=== PATIENT | female | born 1995 | race Caucasian/White ===

== ENCOUNTER 2018-01-21 09:53 | Inpatient (IN) | payer OTHER ==
[2018-01-21] MEDS ORDERED: CARBOPROST 250 MCG INJ IM (10:00)
[2018-01-21] MEDS ORDERED: OXYTOCIN 30 UNITS/LR 500 ML IV (10:00)
[2018-01-21] MEDS ORDERED: METHYLERGONOVINE 0.2 MG INJ IM (10:00)
[2018-01-21] MEDS ORDERED: LIDOCAINE 1% (MPF) 30 ML INJ INJ (10:00)
[2018-01-21] MEDS ORDERED: IBUPROFEN 600 MG TAB PO (10:00)
[2018-01-21] MEDS ORDERED: MISOPROSTOL 200 MCG TAB PR (10:00)
[2018-01-21] MEDS ORDERED: BUTORPHANOL 2 MG INJ IV (10:00)
[2018-01-21 10:48] LABS: WHITE BLOOD COUNT 12.9 10^3/ul (4.8-10.8)
[2018-01-21 10:48] LABS: HEMATOCRIT 37.1 % (37.0-47.0); HEMOGLOBIN 12.8 g/dl (12.0-16.0); MEAN CORPUSCULAR HGB CONC 34.5 g/dl (32.0-37.0); MEAN CORPUSCULAR VOLUME 89.8 fl (82.0-101.0); MEAN PLATELET VOLUME 9.2 fl (7.4-10.4); PLATELET COUNT 323 10^3/UL (140-415); RED BLOOD COUNT 4.13 10^6/ul (4.20-5.40)
[2018-01-21 10:49] LABS: ADD MAN DIFF? YES; POSITIVE DIFF @See below
[2018-01-21 12:09] LABS: ANISOCYTOSIS 1+ (0-0); BAND NEUTROPHILS % (M) 16 % (0-4); LYMPHOCYTES #M 1.1 10^3/ul (0.8-2.9); LYMPHOCYTES % (M) 9 % (15-51); MICROCYTOSIS 1+ (0-0); MONOCYTE #M 0.7 10^3/ul (0.3-0.9); MONOCYTES % (M) 6 % (0-11); MYELOCYTES #M 0.5 10^3/ul (0.0-0.0); MYELOCYTES % (M) 4 % (0-0); PLATELET ESTIMATE NORMAL; POIKILOCYTOSIS 2+ (0-0); REACTIVE LYMPHOCYTES #M 0.7 10^3/ul (0.0-0.0); REACTIVE LYMPHOCYTES% (M) 6 % (0-0); SEG NEUT #M 7.9 10^3/ul (1.6-7.5); SEGMENTED NEUTROPHILS (M) % 59 % (39-77); SMUDGE%M 9 % (0-0); TEAR DROP CELLS 1+ (0-0)
[2018-01-21 12:09] LABS: HEPATITIS B SURFACE ANTIGEN NEGATIVE (NEGATIVE)
[2018-01-21] MEDS: LACTATED RINGER'S 1,000 ML IV ×2 (13:57→16:27)
[2018-01-21] MEDS: OXYTOCIN 30 UNITS/LR 500 ML IV (14:42)
[2018-01-21 15:04] LABS: INR 0.87; PROTIME 11.9 Sec (11.9-14.9); PT RATIO 0.9
[2018-01-21 15:05] LABS: PARTIAL THROMBOPLASTIN TIME 26.6 Sec (23.0-35.0)
[2018-01-21 16:27] LABS: RAPID PLASMA REAGIN NONREACTIVE (NR)
[2018-01-22] MEDS: LACTATED RINGER'S 1,000 ML IV ×2 (00:46→17:23)
[2018-01-22] MEDS: MISOPROSTOL 50 MCG CAPSULE PO ×4 (11:01→23:33)
[2018-01-23] MEDS: LACTATED RINGER'S 1,000 ML IV ×5 (00:19→18:57)
[2018-01-23] MEDS: MISOPROSTOL 50 MCG CAPSULE PO ×2 (03:47→07:47)
[2018-01-23] MEDS: OXYTOCIN 30 UNITS/LR 500 ML IV (14:56)
[2018-01-23] MEDS ORDERED: FENTAnyl 2MCG/ML-ROPIV 0.2% 100 ML BAG EPI (18:30)
[2018-01-23] MEDS ORDERED: NALOXONE (0.4 MG/ML) INJ IV (18:30)
[2018-01-23] MEDS ORDERED: ONDANSETRON 4 MG INJ IV (18:30)
[2018-01-23] MEDS ORDERED: DIPHENHYDRAMINE 50 MG INJ IV (18:30)
[2018-01-24] MEDS: OXYTOCIN 30 UNITS/LR 500 ML IV ×2 (01:05→02:37)
[2018-01-24] MEDS: ACETAMINOPHEN 1000MG/100ML IV 100 ML IVPB (02:22)
[2018-01-24] MEDS: LACTATED RINGER'S 1,000 ML IV* ×2 (04:26→07:59)
[2018-01-24] MEDS ORDERED: OXYTOCIN 30 UNITS/LR 500 ML IV (04:30)
[2018-01-24] MEDS ORDERED: HYDROCODONE/APAP (5/325) TAB PO (04:30)
[2018-01-24] MEDS ORDERED: DIBUCAINE 1% 30 GM OINT TOP (04:30)
[2018-01-24] MEDS ORDERED: METHYLERGONOVINE 0.2 MG INJ IM (04:30)
[2018-01-24] MEDS ORDERED: MISOPROSTOL 200 MCG TAB PR (04:30)
[2018-01-24] MEDS ORDERED: ZOLPIDEM 5 MG TAB PO (04:30)
[2018-01-24] MEDS ORDERED: CARBOPROST 250 MCG INJ IM (04:30)
[2018-01-24] MEDS: HYDROCODONE/APAP (5/325) TAB PO (04:37)
[2018-01-24] MEDS: LANOLIN 7 GM TUBE TOP (04:38)
[2018-01-24] MEDS: BENZOCAINE 20% 56 ML SPRAY TOP (04:38)
[2018-01-24] MEDS: WITCH HAZEL/GLYCERIN PAD PR (04:38)
[2018-01-24] MEDS: MINERAL OIL LIGHT 10 ML VIAL TOP (04:57)
[2018-01-24] MEDS: CEPHALEXIN 500 MG CAP PO ×3 (05:56→18:05)
[2018-01-24] MEDS: IBUPROFEN 600 MG TAB PO ×3 (05:56→18:05)
[2018-01-24] MEDS: LEVOTHYROXINE 175 MCG TAB PO (07:40)
[2018-01-24] MEDS: MAGNESIUM HYDROXIDE 30ML CUP PO ×2 (10:09→21:35)
[2018-01-24] MEDS: SENNA/DOCUSATE NA (8.6MG/50MG) TAB PO ×2 (10:09→21:35)
[2018-01-24 15:17] LABS: ADD MAN DIFF? NO
[2018-01-24 15:19] LABS: WHITE BLOOD COUNT 14.5 10^3/ul (4.8-10.8)
[2018-01-24 15:19] LABS: BASOPHIL # 0.1 10^3/ul (0.0-0.1); BASOPHILS % 0.3 % (0.0-2.0); EOSINOPHILS # 0.1 10^3/ul (0.0-0.5); EOSINOPHILS % 0.6 % (0.0-7.0); HEMATOCRIT 34.1 % (37.0-47.0); HEMOGLOBIN 11.6 g/dl (12.0-16.0); LYMPHOCYTES # 2.5 10^3/ul (0.8-2.9); LYMPHOCYTES % 17.1 % (15.0-51.0); MEAN CORPUSCULAR HEMOGLOBIN 30.6 pg (29.0-33.0); MEAN PLATELET VOLUME 9.3 fl (7.4-10.4); MONOCYTE # 0.7 10^3/ul (0.3-0.9); MONOCYTES % 4.8 % (0.0-11.0); NEUTROPHIL # 11.1 10^3/ul (1.6-7.5); NEUTROPHILS % 76.4 % (39.0-77.0); PLATELET COUNT 327 10^3/UL (140-415); RED BLOOD COUNT 3.79 10^6/ul (4.20-5.40); RED CELL DISTRIBUTION WIDTH 14.8 % (11.5-14.5)
[2018-01-24] MEDS ORDERED: ACETAMINOPHEN 325 MG TAB PO (15:30)
[2018-01-25] MEDS: IBUPROFEN 600 MG TAB PO ×5 (00:53→23:49)
[2018-01-25] MEDS: CEPHALEXIN 500 MG CAP PO ×5 (00:53→23:48)
[2018-01-25] MEDS: LEVOTHYROXINE 175 MCG TAB PO (06:14)
[2018-01-25] MEDS: MAGNESIUM HYDROXIDE 30ML CUP PO ×2 (08:18→21:00)
[2018-01-25] MEDS: SENNA/DOCUSATE NA (8.6MG/50MG) TAB PO ×2 (08:18→21:00)
[2018-01-26] MEDS: IBUPROFEN 600 MG TAB PO ×2 (06:00→11:57)
[2018-01-26] MEDS: LEVOTHYROXINE 175 MCG TAB PO (06:00)
[2018-01-26] MEDS: CEPHALEXIN 500 MG CAP PO ×2 (06:00→11:57)
[2018-01-26] MEDS: DIPHTH/TET/ACEL PERTUSS (ADULT) 0.5 ML VIAL IM* (07:47)
[2018-01-26] MEDS: MAGNESIUM HYDROXIDE 30ML CUP PO (09:00)
[2018-01-26] MEDS: SENNA/DOCUSATE NA (8.6MG/50MG) TAB PO (09:23)
[2018-01-26] MEDS: MEASLES,MUMPS,RUBELLA VACCINE INJ SC* (09:24)
[2018-01-26] MEDS: VARICELLA VACCINE LIVE/PF 1,350 UNIT/0.5 ML ML SC* (09:25)
== END 2018-01-26 12:51 | disposition home or self-care (01) | DRG 807 ==
LOC: L-D 09:53 → PP1 01-24 04:00
PROVIDERS: Obstetrics & Gynecology
PROC: 0U7C7ZZ Dilation of Cervix, Via Natural or Artificial Opening (ICD-10-PCS; 2018-01-23)
PROC: 10E0XZZ Delivery of Products of Conception, External Approach (ICD-10-PCS; principal; 2018-01-24)
DX: O62.0 Primary inadequate contractions (principal); O99.284 Endocrine, nutritional and metabolic diseases complicating childbirth; E03.9 Hypothyroidism, unspecified; Z3A.39 39 weeks gestation of pregnancy; Z37.0 Single live birth
CPT/HCPCS: 62319; 76816; 85025; 85610; 85730; 86592; 86850; 86900; 86901; 87340; 90715; 90716

== ENCOUNTER 2018-01-29 16:53 | Emergency (ER) | payer OTHER ==
[2018-01-29] MEDS: SOD CHLORIDE 0.9% 1,000 ML IV (18:59)
[2018-01-29] MEDS: KETOROLAC 30 MG INJ IV (19:02)
[2018-01-29] MEDS: METOCLOPRAMIDE 10 MG INJ IV (19:02)
[2018-01-29 19:05] LABS: ADD MAN DIFF? NO
[2018-01-29 19:07] LABS: BASOPHIL # 0.1 10^3/ul (0.0-0.1); BASOPHILS % 0.5 % (0.0-2.0); EOSINOPHILS # 0.1 10^3/ul (0.0-0.5); EOSINOPHILS % 0.6 % (0.0-7.0); HEMATOCRIT 37.3 % (37.0-47.0); HEMOGLOBIN 12.5 g/dl (12.0-16.0); LYMPHOCYTES # 2.4 10^3/ul (0.8-2.9); LYMPHOCYTES % 21.6 % (15.0-51.0); MEAN CORPUSCULAR HEMOGLOBIN 30.3 pg (29.0-33.0); MEAN CORPUSCULAR HGB CONC 33.5 g/dl (32.0-37.0); MEAN CORPUSCULAR VOLUME 90.5 fl (82.0-101.0); MEAN PLATELET VOLUME 8.5 fl (7.4-10.4); MONOCYTE # 0.6 10^3/ul (0.3-0.9); MONOCYTES % 5.2 % (0.0-11.0); NEUTROPHIL # 7.8 10^3/ul (1.6-7.5); PLATELET COUNT 439 10^3/UL (140-415); RED BLOOD COUNT 4.12 10^6/ul (4.20-5.40); RED CELL DISTRIBUTION WIDTH 14.4 % (11.5-14.5)
[2018-01-29] MEDS: DIPHENHYDRAMINE 50 MG INJ IV (19:18)
[2018-01-29 19:22] LABS: ANION GAP 12 (5-13); BLOOD UREA NITROGEN 8 mg/dl (7-20); CALCIUM 9.8 mg/dl (8.4-10.2); CARBON DIOXIDE 27 mmol/L (21-31); CHLORIDE 103 mmol/L (97-110); CREATININE 0.47 mg/dl (0.44-1.00); Estimated GFR > 60 mL/min (>60); GLUCOSE 89 mg/dl (70-220); POTASSIUM 3.8 mmol/L (3.5-5.1); SODIUM 142 mmol/L (135-144)
[2018-01-29 19:26] LABS: INR 0.84; PROTIME 11.6 Sec (11.9-14.9); PT RATIO 0.9
[2018-01-29 19:27] LABS: PARTIAL THROMBOPLASTIN TIME 31.5 Sec (23.0-35.0)
== END 2018-01-29 20:59 | disposition home or self-care (01) ==
LOC: FTE 16:53
DX: O89.4 Spinal and epidural anesthesia-induced headache during the puerperium (principal); R51 Headache
CPT/HCPCS: 36415; 70450; 80048; 81025; 84703; 85025; 85610; 85730; 96374; 96375; 99285-25